=== PATIENT | male | born 1940 | race Caucasian/White ===

== ENCOUNTER 2017-04-13 21:48 | Inpatient (IN) | payer OTHER ==
--- NOTE | ~2017-04-13 | HP ---
History And Physical [place] [address] [place]. [address] NAME: ARMANDO GARRETT : 42 STATUS : ADM Kvng PAT#: [id number] AGE: 76 ADM/REG DATE : 04/13/17 MR#: [id number] REPORT SERV DATE: 04/14/17 DICTATED BY: DATE: REPORT STATUS : Draft TRANSCRIBED BY: MODL DATE: 04/13/17 DATE OF ADMISSION: 04/13/2017 CHIEF COMPLAINT: Bright red blood per rectum, abdominal pain. HISTORY OF PRESENT ILLNESS: Mr. Garrett is a 76-year-old white male, who was in his usual state of health until Sunday of this week, when he had four bowel movements. He states the initial one started out as constipation. He has been taking increasing amounts of Percocet recently due to joint pain and back pain with outpatient evaluation pending. Following the constipated bowel movement, he had two more large volume bowel movements with no blood. By the time, he had a fourth bowel movement on Sunday, he described "filling the commode with clots." He had regular bowel movements on Sunday and Sunday, but then on , developed some recurrence of frequent bowel movements, with the last bowel movement being quite malodorous, bulky, and with blood in the commode and on wiping. The patient reports a past history of colon polyps and last colonoscopy was performed in the [place] [facility] in 2009. He has not been having any recent GI issues aside from the constipation that started on Sunday. He denies any unusual food or fluid ingestions, has not been drinking well water, has not been drinking from a stream, has not eaten any unusual foods nor had any sick contacts. He has not taken any recent antibiotics. He saw his primary care provider at the [place] - Jean Carlos Esposito today, and was referred to the hospital for further evaluation because of recurrence of the GI bleeding with associated symptoms of weakness and fatigue. The patient also endorses bilateral lower quadrant and midline tenderness to palpation. He denies any fevers or chills. He has not had any nausea or vomiting. His oral intake has been unaffected by his GI symptoms. On further questioning, his weakness and fatigue has been present since at least December of this year, at which point, he was evaluated for multiple causes of chronic fatigue, resulting in a cardiac stent being placed at [facility] on 12/26. The patient denies taking any blood thinning medications. In the emergency department, he was found to be mildly orthostatic with a 20-point systolic blood pressure decreased on standing, and is tachycardic with heart rates between 100 and 109. He continues to endorse abdominal pain and weakness. His hemoglobin is 12.5. His coagulation studies are normal. His blood pressure is elevated, and he has had a CT abdomen and pelvis without contrast demonstrating no acute abnormalities. REVIEW OF SYSTEMS: Full 14-point review of systems is negative except as dictated in the history of present illness. History And Physical [address] [place]. [address] NAME: ARMANDO GARRETT : 42 STATUS : ADM Kvng PAT#: [id number] AGE: 76 ADM/REG DATE : 04/13/17 MR#: [id number] REPORT SERV DATE: 04/14/17 DICTATED BY: DATE: REPORT STATUS : Draft TRANSCRIBED BY: MODArturo DATE: 04/13/17 PAST MEDICAL HISTORY: Extensive and includes: 1. Spinal stenosis. 2. Pulmonary nodule. 3. Obesity. 4. Colonic polyps. 5. Erectile dysfunction. 6. Glucose intolerance. 7. Cataract. 8. Allergic rhinitis. 9. History of central retinal vein occlusion. 10.Glaucoma. 11.Degenerative joint disease. 12.COPD - with past history of heavy tobacco use. 13.Benign prostatic hypertrophy. 14.Rheumatoid arthritis. 15.Osteoarthritis. 16.Hypertension. 17.History of anemia. 18.History of gastroesophageal reflux disease. PAST SURGICAL HISTORY: Includes: 1. Coronary artery stent on 12/26/2016. 2. Tonsillectomy. 3. Cholecystectomy. 4. Spinal fusion x2. 5. Left foot fusion. 6. Right shoulder surgery. ALLERGIES: NONE. MEDICATIONS: 1. Percocet 5/325 mg one tablet p.o. four times a day. 2. Calcium plus vitamin D two tablets p.o. daily. 3. Meloxicam 15 mg p.o. daily. 4. Prednisone 5 mg p.o. twice a day. 5. Etanercept 50 mg injected weekly. 6. Omeprazole 20 mg p.o. daily. 7. Dorzolamide eyedrops one drop in each eye twice a day. 8. Latanoprost eye drops one drop in each eye at bedtime. 9. Valsartan 325 mg p.o. daily. 10.Leflunomide 20 mg p.o. daily. 11.Simvastatin 40 mg p.o. at bedtime. 12.Cetirizine 10 mg p.o. daily. 13.Gabapentin 600 mg p.o. three times a day. 14.Brimonidine one drop in both eyes twice a day. 15.Hydrochlorothiazide 12.5 mg p.o. daily. 16.Artificial tears one drop in both eyes four times a day. History And Physical [address] [address] NAME: ARMANDO GARRETT : 42 STATUS : ADM Kvng PAT#: [id number] AGE: 76 ADM/REG DATE : 04/13/17 MR#: [id number] REPORT SERV DATE: 04/14/17 DICTATED BY: DATE: REPORT STATUS : Draft TRANSCRIBED BY: MODL DATE: 04/13/17 17.Advair 115/21 mcg one puff inhaled twice a day. 18.Tamsulosin 0.4 mg p.o. daily. 19.Topical nystatin q.6 hours as needed for rash. 20.Duloxetine 30 mg p.o. daily. SOCIAL HISTORY: The patient is . He is a retired marine. He smokes one pack a day for 40-50 years, but quit smoking 10 years ago and now uses dip tobacco instead. He denies any present alcohol use, but used to drink one beer a day several years ago. He drinks caffeine occasionally. No routine exercise. FAMILY HISTORY: The patient's mother had lung cancer. He has other family members with COPD. His father of myocardial infarction at the age of 74. His brother of myocardial infarction in his 70s. His mother also had a stroke at age 65. Primary care provider is Jean Carlos Esposito at the [place] and airborne electronics analyst is Dr. Luis Mcmullen. PHYSICAL EXAMINATION: VITAL SIGNS: Blood pressure 198/88 lying, 170/80 standing, temperature 97.1, pulse 100, respirations 18, oxygen saturations 95% on room air. GENERAL: This is an obese white male, in no acute distress. Alert and oriented in three dimensions. He is pleasant and conversant, although complaining of pain and pass view for Percocet. HEENT: Normocephalic, atraumatic. Pupils are equally round and reactive to light. No scleral icterus. No sinus tenderness to palpation or nasal drainage. Oropharynx moist and pink with no posterior pharyngeal erythema nor exudate. NECK: Supple. No jugular venous distention. No lymphadenopathy. No bruits. CARDIOVASCULAR: Regular rate and rhythm. No murmurs, rubs or gallops. LUNGS: Clear to auscultation bilaterally. No wheezes, crackles, nor rhonchi. ABDOMEN: Abdomen is soft, distended. Diffusely tender to palpation vertically along the midline, and in bilateral lower quadrants. Decreased bowel sounds x4. No obvious ascites and no clear hepatosplenomegaly, although habitus limits examination. EXTREMITIES: No cyanosis, clubbing, or edema. Evidence of prior fusion of the left ankle. SKIN: Normal skin turgor, question psoriasis on his back, with a faint scaly rash covering the majority of bilateral lower quadrants. NEUROLOGIC: Cranial nerves 2 through 12 were tested and are intact. Deep tendon reflex 2+ bilateral brachioradialis and patellar tendons. Sensation intact to fine touch and temperature in all four limbs. Strength is 5/5 bilateral upper and lower extremities. RECTAL: No stool in the vault. No evidence of blood presently. LABS: Labs from the [place] on 03/21/2017 and 03/27/2017 were reviewed as well as labs from the emergency department. Here, sodium is 144, potassium 4.4, chloride 109, bicarb 28, BUN 28, creatinine 1.1, glucose 147, calcium 9.5, total protein 7.1, albumin 3.3, and liver enzymes are normal. White blood cell count 6.3, hemoglobin 12.5, hematocrit 38.7, platelets 278. INR 1.0. Outside labs reveal hemoglobin on 03/21/2017 to be 11.6. Sedimentation rate 34, rheumatoid History And Physical [address] [place]. [address] NAME: ARMANDO GARRETT : 41 STATUS : ADM Kvng PAT#: [id number] AGE: 76 ADM/REG DATE : 04/13/17 MR#: [id number] REPORT SERV DATE: 04/14/17 DICTATED BY: DATE: REPORT STATUS : Draft TRANSCRIBED BY: MODL DATE: 04/13/17 factor 61. C-reactive protein 6. Liver enzymes and kidney function were normal at that point with a BUN of 24. MANSOOR is negative. Urine drug screen negative. A 24-hour urine for metanephrines negative. IMAGIN. A recent outpatient CT chest was done for re-evaluation of a 4 mm left major fissure nodule. It is stable. Incidentally noted on that image is also a left renal artery stent. No evidence of thoracic aortic aneurysm. Fat containing hiatal hernia. 2. CT abdomen and pelvis without contrast here shows 1-2 mm nonobstructing intrarenal calculi bilaterally, 2.7 cm exophytic simple cyst in the upper pole cortex of the left kidney, with left renal artery vascular stent in place. Mild diverticulosis throughout the colon, but no diverticulitis, colitis, or proctitis. Small fat containing umbilical hernia and mild atherosclerotic calcification of the abdominal aorta but no aneurysm. Multilevel severe degenerative disk disease throughout the lower thoracic and lumbar spine. No inguinal hernia. No bladder calculus. Normal prostate and seminal vesicles. 3. An EKG shows normal sinus rhythm with no evidence of ischemic change. IMPRESSION: 1. Bright red blood per rectum - intermittent over the course of the past week. 2. Mild anemia. 3. Bilateral lower quadrant and midline abdominal pain of unclear etiology. 4. Hypertension - with orthostasis. 5. Weakness and fatigue - etiology unclear. 6. Rheumatoid arthritis on disease modifying agents and chronic steroid therapy. 7. Narcotic dependent degenerative disk disease and degenerative joint disease. 8. Pulmonary nodule - stable in the left middle lobe. 9. Recent stent - cardiac per history provided by patient, but suspect it was actually a left renal artery stent based on imaging. 10.Additional medical history as outlined. PLAN: 1. Observation admission to a cardiac telemetry bed, attending Dr. Riley Mckeon. 2. IV fluids, with serial H and H measurements and transfusion if indicated. It is not presently indicated. 3. Stool studies if the patient produces recurrent loose bowel movements. Stool will be sent for fecal white blood cells, ova and parasite, stool Gram stain and culture, C. diff PCR. 4. Mesenteric Doppler ultrasound to evaluate for mesenteric stenosis given cardiovascular risk factors and unexplained abdominal symptoms. 5. Non-pharmacologic DVT prophylaxis. 6. GI consultation - Dr. Cody Majano for this unattached patient. ED/BINDU History And Physical [address] [place]. [address] NAME: ARMANDO GARRETT : 41 STATUS : ADM Kvng PAT#: [id number] AGE: 76 ADM/REG DATE : 04/13/17 MR#: [id number] REPORT SERV DATE: 04/14/17 DICTATED BY: DATE: REPORT STATUS : Draft TRANSCRIBED BY: MODL DATE: 04/13/17 Riley Mckeon M.D. / [id number] CC: Jalen Fitzpatrick MD
--- NOTE | ~2017-04-13 | EGD ---
EGD REPORT [facility] [address] [place] [address] NAME: RAMIRO GARRETT : 42 STATUS : ADM Kvng PAT#: [id number] AGE: 76 ADM/REG DATE : 04/13/17 MR#: [id number] REPORT SERV DATE: 04/15/17 DICTATED BY: JOSE CABRERA DATE: 04/15/17 REPORT STATUS : Draft [facility] BY: [facility] DATE: 04/15/17 Endoscopy Center Patient Name: Ramiro Garrett Date of : 1940 Attending MD: JOSE CABRERA MD Procedure Date No Time: 04/15/2017 Procedure: Colonoscopy Indications: Hematochezia; h/o colon polyps; last exam 2009. Patient Profile: Informed consent was obtained from the patient by me prior to the procedure. Risks, benefits, and alternatives were discussed including the risk of bleeding, perforation, infection, reaction to medicine, missed lesion, and cardiopulmonary complications. Referring MD: KIRBY YBARRA Medicines: Monitored Anesthesia Care Complications: No immediate complications. Procedure: Pre-Anesthesia Assessment: - ASA Grade Assessment: III - A patient with severe systemic disease. After I obtained informed consent, the scope was passed under direct vision. Throughout the procedure, the patient's blood pressure, pulse, and oxygen saturations were monitored continuously. The CF [id number] was introduced through the anus and advanced to the cecum, identified by appendiceal orifice and ileocecal valve. The colonoscope was slowly withdrawn with careful examination all mucosal surfaces including specific attention around flexures and tip deflection behind folds; retroflexion performed in rectum. The colonoscopy was performed without difficulty. The patient tolerated the procedure well. The quality of the bowel preparation was adequate. The ileocecal valve, appendiceal orifice and rectum were photographed. CO2 utilized. Findings: A localized area of mildly thickened folds of the mucosa was found in the sigmoid colon and at 18 cm proximal to the anus ?inverted diverticulum vs polyp. Biopsies were taken with a cold forceps for histology. Two flat polyps were found in the rectum. The polyps were 5 mm in size. These polyps were removed with a cold biopsy forceps. Resection and retrieval were complete. Internal hemorrhoids were found, and they were moderate. Impression: - Thickened folds of the mucosa in the sigmoid colon and EGD REPORT [address] [place]. [address] NAME: RAMIRO GARRETT : 42 STATUS : ADM Kvng PAT#: [id number] AGE: 76 ADM/REG DATE : 04/13/17 MR#: [id number] REPORT SERV DATE: 04/15/17 DICTATED BY: JOSE CABRERA DATE: 04/15/17 REPORT STATUS : Draft TRANSCRIBED BY: [facility] DATE: 04/15/17 at 18 cm proximal to the anus. Biopsied. - Two 5 mm polyps in the rectum. Resected and retrieved. - Internal hemorrhoids. Recommendation: - Await pathology results. - Hemorrhoids very likely source of bleeding--Anusol HC cream 10 days then prn. - D/c home OK gi standpoint. Procedure Code(s): --- Professional --- 29484, Colonoscopy, flexible, proximal to splenic flexure; with biopsy, single or multiple Diagnosis Code(s): --- Professional --- K63.89, Other specified diseases of intestine K62.1, Rectal polyp K64.8, Other hemorrhoids K92.1, Melena CPT copyright 2013 [employer]. All rights reserved. The codes documented in this report are preliminary and upon children's service supervisor review may be revised to meet current compliance requirements. JOSE CABRERA MD 04/15/2017 9:27 AM This report has been signed electronically. Number of Addenda: 1 Note Initiated On: 04/15/2017 8:54 AM Scope Withdrawal Time 0 hours 13 minutes 48 seconds Addendum Number: 1 Addendum Date: 04/15/2017 9:28 AM SC diverticulosis JOSE CABRERA MD 04/15/2017 9:28 AM This report has been signed electronically. EGD REPORT [facility] [address] [place] [address] NAME: RAMIRO GARRETT : 42 STATUS : ADM Kvng PAT#: [id number] AGE: 76 ADM/REG DATE : 04/13/17 MR#: [id number] REPORT SERV DATE: 04/15/17 DICTATED BY: JOSE CABRERA. DATE: 04/15/17 REPORT STATUS : Draft TRANSCRIBED BY: [facility] DATE: 04/15/17 [facility] [place] [address]
--- NOTE | ~2017-04-13 | CN ---
Consultation Report [facility] [address] [place]. [address] NAME: ARMANDO YOO : 42 STATUS : ADM Kvng PAT#: [id number] AGE: 76 ADM/REG DATE : 04/13/17 MR#: [id number] REPORT SERV DATE: 04/14/17 DICTATED BY: CODY MAJANO DATE: 04/14/17 REPORT STATUS : Draft TRANSCRIBED BY: MODL DATE: 04/14/17 GI CONSULT DATE OF CONSULTATION: 04/14/2017 Bright red blood per rectum. HISTORY OF PRESENT ILLNESS: This is a 76-year-old man, who presented to the emergency room with two episodes of mild volume hematochezia with clots, but also with brown stool and no melena. He has had no further hematochezia since admission. No abdominal pain. No diarrhea or constipation. No GERD or dysphagia. Last colonoscopy 2009. Polyps were removed at the [place]. MEDICAL HISTORY: Spinal stenosis, pulmonary nodule, obesity, colon polyps, erectile dysfunction, cataract, allergic rhinitis, central retinal vein occlusion, glaucoma, degenerative joint disease, COPD, BPH, rheumatoid arthritis, osteoarthritis, hypertension, GERD, coronary artery stent, tonsillectomy, cholecystectomy, spinal fusion x2, left foot fusion, right shoulder surgery. ALLERGIES: GABAPENTIN. MEDICATIONS: Brimonidine, calcium, Zyrtec, Cosopt, Advair, Xalatan, leflunomide, Mobic, Prilosec, Percocet, prednisone, Zocor, Enbrel, Diovan. FAMILY HISTORY: Negative for GI malignancy. SOCIAL HISTORY: Does not use alcohol or tobacco significantly. REVIEW OF SYSTEMS: A complete review of systems was obtained and negative except that noted in the history of present illness. PHYSICAL EXAMINATION: VITAL SIGNS: He is currently afebrile. Temperature 97.6, pulse 70, respirations 18, blood pressure 104/59. HEENT: Sclerae anicteric. Pharynx is pink without exudate. NECK: Supple without lymphadenopathy. LUNGS: Clear to auscultation bilaterally. HEART: Regular rate and rhythm. S1, S2 heard without rubs or gallops. ABDOMEN: Normal bowel sounds. Belly is soft, nontender, nondistended without hepatosplenomegaly. EXTREMITIES: No pedal edema or rash. NEUROLOGIC: Alert and oriented without focal deficit. MUSCULOSKELETAL: Nontender. Consultation Report [facility] [address] [place] [address] NAME: ARMANDO YOO : 42 STATUS : ADM Kvng PAT#: [id number] AGE: 76 ADM/REG DATE : 04/13/17 MR#: [id number] REPORT SERV DATE: 04/14/17 DICTATED BY: CODY MAJANO DATE: 04/14/17 REPORT STATUS : Draft TRANSCRIBED BY: MODL DATE: 04/14/17 DATA: White blood cell count 5.6, hematocrit 38.0 and stable, MCV 98.9, platelets 277. INR 1.0. BUN is 28, creatinine is 0.99. Liver tests are normal. TSH low. Hemoglobin A1c 7.3. A.m. cortisol normal. B12 normal. Serum iron normal. IMPRESSION: 1. Hematochezia in the setting of a history of colon polyps. 2. Chronic obstructive pulmonary disease. 3. Rheumatoid arthritis. RECOMMENDATIONS: 1. Monitor hematocrit, transfuse as necessary. 2. GoLYTELY preparation for colonoscopy to follow. CC/BINDU Cody Majano M.D. / [id number] CC: Jalen Lozada MD
--- NOTE | ~2017-04-13 | EGD ---
EGD REPORT [facility] [address] [place] [address] NAME: RAMIRO GARRETT : 42 STATUS : ADM Kvng PAT#: [id number] AGE: 76 ADM/REG DATE : 04/13/17 MR#: [id number] REPORT SERV DATE: 04/15/17 DICTATED BY: JOSE CABRERA DATE: 04/15/17 REPORT STATUS : Draft TRANSCRIBED BY: [facility] DATE: 04/15/17 Endoscopy Center Patient Name: Ramiro Garrett Date of : 1940 Attending MD: JOSE CABRERA MD Procedure Date No Time: 04/15/2017 Procedure: Colonoscopy Indications: Hematochezia; h/o colon polyps; last exam 2009. Patient Profile: Informed consent was obtained from the patient by me prior to the procedure. Risks, benefits, and alternatives were discussed including the risk of bleeding, perforation, infection, reaction to medicine, missed lesion, and cardiopulmonary complications. Referring MD: KIRBY YBARRA Medicines: Monitored Anesthesia Care Complications: No immediate complications. Procedure: Pre-Anesthesia Assessment: - ASA Grade Assessment: III - A patient with severe systemic disease. After I obtained informed consent, the scope was passed under direct vision. Throughout the procedure, the patient's blood pressure, pulse, and oxygen saturations were monitored continuously. The CF [id number] was introduced through the anus and advanced to the cecum, identified by appendiceal orifice and ileocecal valve. The colonoscope was slowly withdrawn with careful examination all mucosal surfaces including specific attention around flexures and tip deflection behind folds; retroflexion performed in rectum. The colonoscopy was performed without difficulty. The patient tolerated the procedure well. The quality of the bowel preparation was adequate. The ileocecal valve, appendiceal orifice and rectum were photographed. CO2 utilized. Findings: A localized area of mildly thickened folds of the mucosa was found in the sigmoid colon and at 18 cm proximal to the anus ?inverted diverticulum vs polyp. Biopsies were taken with a cold forceps for histology. Two flat polyps were found in the rectum. The polyps were 5 mm in size. These polyps were removed with a cold biopsy forceps. Resection and retrieval were complete. Internal hemorrhoids were found, and they were moderate. Impression: - Thickened folds of the mucosa in the sigmoid colon and EGD REPORT [address] [place]. [address] NAME: RAMIRO GARRETT : 42 STATUS : ADM Kvng PAT#: [id number] AGE: 76 ADM/REG DATE : 04/13/17 MR#: [id number] REPORT SERV DATE: 04/15/17 DICTATED BY: JOSE CABRERA DATE: 04/15/17 REPORT STATUS : Draft TRANSCRIBED BY: [facility] DATE: 04/15/17 at 18 cm proximal to the anus. Biopsied. - Two 5 mm polyps in the rectum. Resected and retrieved. - Internal hemorrhoids. Recommendation: - Await pathology results. - Hemorrhoids very likely source of bleeding--Anusol HC cream 10 days then prn. - D/c home OK gi standpoint. Procedure Code(s): --- Professional --- 60264, Colonoscopy, flexible, proximal to splenic flexure; with biopsy, single or multiple Diagnosis Code(s): --- Professional --- K63.89, Other specified diseases of intestine K62.1, Rectal polyp K64.8, Other hemorrhoids K92.1, Melena CPT copyright 2013 [employer]. All rights reserved. The codes documented in this report are preliminary and upon mat making machine tender review may be revised to meet current compliance requirements. JOSE CABRERA MD 04/15/2017 9:27 AM This report has been signed electronically. Number of Addenda: 0 Note Initiated On: 04/15/2017 8:54 AM Scope Withdrawal Time 0 hours 13 minutes 48 seconds
--- NOTE | ~2017-04-13 | DS ---
Discharge Summary [facility] [address] [place]. [address] NAME: ARMANDO YOO : 42 STATUS : DIS IN PAT#: [id number] AGE: 76 ADM/REG DATE : 04/13/17 MR#: [id number] REPORT SERV DATE: 04/16/17 DICTATED BY: VENUS VALENZUELA DATE: 04/15/17 REPORT STATUS : Draft TRANSCRIBED BY: MODL DATE: 04/15/17 ADMISSION DATE: 04/13/2017 DISCHARGE DATE: 04/15/2017 ASSOCIATE ARTISTIC DIRECTOR: Coyd Majano M.D., GI. DISCHARGE DIAGNOSES: 1. Acute bright red blood per rectum. 2. Acute blood loss anemia. 3. Chronic obstructive pulmonary disease. 4. Rheumatoid arthritis, chronic pain. 5. Glaucoma and history of central retinal artery occlusion. 6. Opiate-induced constipation. 7. Glaucoma with previous central retinal artery occlusion. 8. Obesity with body mass index of 31.3. 9. Erectile dysfunction with diabetes mellitus type 2 with current A1c of 7.3%. 10.Hypertension. 11.History of pulmonary nodule, 6 x 10 mm, right upper lobe on 10/15/2015 CT of chest. 12.Benign prostatic hypertrophy. 13.Peripheral arterial disease with history of previous left renal artery stent. HISTORY: This patient is followed by Dr. Esposito at the [facility] as well as Rheumatology at the [facility]. He presents to the emergency room at [facility]. He normally has significant constipation, but recently had a few more bowel movements. Reportedly, he to increase the amount of Percocet he was taking because of his arthritic pain. He then started to notice bright red blood per rectum multiple times and came to our emergency room because of this. He had some vague abdominal discomfort. He was referred to our team for inpatient care. CT scan of the abdomen and pelvis revealed no acute abnormalities. There was very tiny 1 to 2 mm vascular calcifications versus nonobstructing bilateral intrarenal calculi; small cyst, upper pole left kidney; left renal artery vascular stent in place. No inflammatory changes noted in the bowel. Mesenteric Doppler unfortunately was limited by overlying bowel gas. The superior mesenteric artery was well visualized and was normal. The inferior mesenteric, splenic, hepatic, and celiac could not be visualized because of overlying bowel gas. But the patient had no significant abdominal pain, so this was not felt to be ischemic cause for his bleeding. He was seen by Dr. Cody Majano of GI. He gave the patient GoLYTELY and then did a colonoscopy on 04/15/2017. He found several small colon polyps, these were removed. There was a local area in the sigmoid colon, 18 cm proximal to the anus that was thought to be a possible inverted diverticulum, biopsies were taken. There were internal hemorrhoids, that were moderate in size, and Dr. Majano felt that was the source for the bleeding. He gave him Anusol HC for this and to follow up as an outpatient. I talked with the patient and his at length about his chronic constipation that is likely opiate induced. In the past, he has tried MiraLAX, stool softeners, milk of magnesia, Dulcolax without improvement. We are going to try lactulose. If that fails, his Discharge Summary [address] [place]. [address] NAME: ARMANDO YOO : 42 STATUS : DIS IN PAT#: [id number] AGE: 76 ADM/REG DATE : 04/13/17 MR#: [id number] REPORT SERV DATE: 04/16/17 DICTATED BY: VENUS VALENZUELA DATE: 04/15/17 REPORT STATUS : Draft TRANSCRIBED BY: BINDU DATE: 04/15/17 PCP can consider other options such as Movantik or Linzess. The patient was noted to have a mild acute blood loss anemia. His hemoglobin on presentation was 12.5, at its lowest 11.3. He does have a history of a mild chronic anemia, which certainly is not surprising given his significant rheumatoid arthritis. I talked with the patient about his tobacco use. He no longer smokes, but he does dip. I advised him that this still increases his risk of cancer of the mouth and of the gastrointestinal tract. The patient's A1c was checked here because of a history of glucose problems. His A1c was 7.3% consistent with type 2 diabetes mellitus. His sugars here ranged between 97 and 147. DISCHARGE MEDICATIONS: Brimonidine 0.2% one drop both eyes b.i.d.; Cosopt ophthalmic one drop both eyes b.i.d.; Xalatan 0.005 one drop both eyes at bedtime; Prilosec 20 mg daily, which is chronic for him; Zocor 40 mg daily; Diovan 320 mg every morning (creatinine 0.84 and potassium 3.9); prednisone, he takes 5 mg in the morning, 3 mg at bedtime, and he occasionally takes a 10 mg p.r.n. acute flare with his arthritis; Tylenol 650 q.6 hours p.r.n. mild pain; Percocet 5/325 q.i.d. p.r.n. pain, which is a chronic medicine for him; Zyrtec 5 mg daily p.r.n. allergies; Os-Benjamin with vitamin D 500 mg b.i.d.; Enbrel 50 mg subcu every Sunday and I advised him to discontinue the Mobic because at his age, it increases his risk of upper GI bleeds as well as renal dysfunction and cardiac dysfunction; Arava 20 mg daily; Advair HFA 115/21, a puff q.12 hours; Anusol HC suppository one per rectum b.i.d.; and lactulose one to four tablespoons daily, titrated to constipation. FOLLOWUP: He should follow up with his [place] physician, Dr. Jean Carlos Esposito, within the next week or two; with GI, Dr. Majano in the next month; as well as with his Vascular, Dr. Reyna; and his ccu nurse, Dr. Terrell Vasquez at the [facility]. I spent 42 minutes today with the patient and with his and with discharge planning. DICTATED BY: Venus Valenzuela M.D. RSG/MODL Venus Valenzuela M.D. / [id number] CC: Jalen Lozada MD Chad Charapata, M.D. Discharge Summary [address] [address] NAME: ARMANDO YOO : 42 STATUS : DIS IN PAT#: [id number] AGE: 76 ADM/REG DATE : 04/13/17 MR#: [id number] REPORT SERV DATE: 04/16/17 DICTATED BY: VENUS VALENZUELA DATE: 04/15/17 REPORT STATUS : Draft TRANSCRIBED BY: BINDU DATE: 04/15/17 Sahil Reyna M.D. Nidia Torres Red
[2017-04-13 20:03] LABS: BASOPHILS 0.2 %; BASOPHILS ABSOLUTE 0.01 10/3/uL (0.0-0.16); EOSINOPHILS 1.9 %; EOSINOPHILS ABSOLUTE 0.12 10/3/uL (0.0-0.53); HEMOGLOBIN 12.5 g/dL (13.6-17.8); IMMATURE GRANULOCYTES 0.2 %; IMMATURE GRANULOCYTES ABSOLUTE 0.01 10/3/uL (0.0-0.11); LYMPHOCYTES ABSOLUTE 1.45 10/3/uL (0.67-4.30); MEAN CORPUS HGB CONC 32.3 g/dL (32.0-36.0); MEAN CORPUSCULAR HEMOGLOB 31.6 pg (26.0-34.0); MEAN PLATELET VOLUME 9.5 fL (9.2-13.0); MONOCYTES 11.9 %; MONOCYTES ABSOLUTE 0.75 10/3/uL (0.21-1.20); NEUTROPHILS 62.8 %; NEUTROPHILS ABSOLUTE 3.97 10/3/uL (2.02-8.40); PLATELET COUNT 278 10/3/uL (150-400); RBC DISTRIBUTION WIDTH 13.7 % (12.0-16.0); RED CELL COUNT 3.95 10/6/uL (4.7-6.1); WHITE BLOOD CELLS 6.3 10/3/uL (4.5-10.5)
[2017-04-13 20:04] LABS: HEMATOCRIT 38.7 % (40.0-51.0); MANUAL DIFF NO %
[2017-04-13 20:18] LABS: PARTIAL THROMBO TIME 23.1 SEC (22.5-37.2); PROTIME (NOT ORD) 12.8 SEC (12.0-14.5)
[2017-04-13 20:19] LABS: A/G RATIO 0.9 (0.7-1.9); ALBUMIN 3.3 G/DL (3.5-5.0); ALKALINE PHOSPHATASE 65 U/L (45-117); CHLORIDE, SERUM 109 MMOL/L (96-112); CO2 (CARBON DIOXIDE) 28 MMOL/L (24-34); GFR AFRICAN AMERICAN 76 ML/MIN (>=60); GFR NON AFRICAN AMERICAN 65 ML/MIN (>=60); GLOBULIN 3.8 G/DL (2.5-4.1); POTASSIUM, SERUM 4.4 MMOL/L (3.5-5.3); SGOT(AST) 26 U/L (5-40); SGPT(ALT) 30 U/L (5-65); TOTAL BILIRUBIN 0.7 MG/DL (0-1.2); TOTAL PROTEIN 7.1 G/DL (6.0-8.5)
[2017-04-13 20:20] LABS: BUN (BLOOD UREA NITROGEN) 28 MG/DL (6-23); CALCIUM, SERUM 9.5 MG/DL (8.5-10.4); GLUCOSE, SERUM 147 MG/DL (60-99); SODIUM, SERUM 144 MMOL/L (135-148)
[~2017-04-13 21:48] MED LIST: ALEVE220 MG PO; ASAB PO; CALTRA600D PO; CAT1 PO; CETIRIZINE HCL5 MG PO; COREG6 PO; DORZOLAMIDE2 % OPH; ENBREL50 MG/M1 SC; FLOMAX4 PO; IBU800 PO; P1 PO; P5 PO; PCET PO; PRAVACHOL40 MG PO; PRILO PO; PULMICORT90 MCG INH; TIMOLOL MAL0.5 % OPH; XALAT OPH; ZESTRIL40 MG PO
[2017-04-13] MEDS ORDERED: P1 PO (23:33)
[2017-04-13] MEDS ORDERED: OS500+D PO (23:33)
[2017-04-13] MEDS ORDERED: PCET PO (23:33)
[2017-04-13] MEDS ORDERED: MOBIC7.5 PO (23:33)
[2017-04-13] MEDS ORDERED: P5 PO (23:36)
[2017-04-13] MEDS ORDERED: P10 PO (23:36)
[2017-04-13] MEDS ORDERED: ENBREL 50 MG SC (23:37)
[2017-04-13] MEDS ORDERED: PRILO PO (23:38)
[2017-04-13] MEDS ORDERED: COSOPT OPH (23:39)
[2017-04-13] MEDS ORDERED: XALAT OPH (23:39)
[2017-04-13] MEDS ORDERED: DIOVAN320 MG PO (23:40)
[2017-04-13] MEDS ORDERED: ARAVA20 PO (23:40)
[2017-04-13] MEDS ORDERED: CETIRIZINE HCL5 MG PO (23:41)
[2017-04-13] MEDS ORDERED: ZOCOR40 PO (23:41)
[2017-04-13] MEDS ORDERED: BRIMONIDINE0.2 % OPH (23:43)
[2017-04-13] MEDS ORDERED: ADVAIR115P INH (23:45)
[2017-04-14 04:47] LABS: BASOPHILS 0.2 %; BASOPHILS ABSOLUTE 0.01 10/3/uL (0.0-0.16); EOSINOPHILS 3.7 %; EOSINOPHILS ABSOLUTE 0.21 10/3/uL (0.0-0.53); HEMATOCRIT 37.4 % (40.0-51.0); HEMOGLOBIN 11.9 g/dL (13.6-17.8); IMMATURE GRANULOCYTES 0.4 %; IMMATURE GRANULOCYTES ABSOLUTE 0.02 10/3/uL (0.0-0.11); LYMPHOCYTES ABSOLUTE 1.63 10/3/uL (0.67-4.30); MEAN CORPUS HGB CONC 31.8 g/dL (32.0-36.0); MEAN CORPUSCULAR HEMOGLOB 31.5 pg (26.0-34.0); MEAN CORPUSCULAR VOLUME 98.9 fL (80-100); MONOCYTES 12.5 %; NEUTROPHILS 54.2 %; NEUTROPHILS ABSOLUTE 3.05 10/3/uL (2.02-8.40); PLATELET COUNT 277 10/3/uL (150-400); RBC DISTRIBUTION WIDTH 13.8 % (12.0-16.0); RED CELL COUNT 3.78 10/6/uL (4.7-6.1); WHITE BLOOD CELLS 5.6 10/3/uL (4.5-10.5)
[2017-04-14 04:52] LABS: MANUAL DIFF NO %
[2017-04-14 05:24] LABS: BUN (BLOOD UREA NITROGEN) 28 MG/DL (6-23); CALCIUM, SERUM 9.2 MG/DL (8.5-10.4); CHLORIDE, SERUM 107 MMOL/L (96-112); CREATININE 0.99 MG/DL (0.70-1.30); GFR AFRICAN AMERICAN 86 ML/MIN (>=60); GFR NON AFRICAN AMERICAN 74 ML/MIN (>=60); IRON, SERUM 58 MCG/DL (35-150); POTASSIUM, SERUM 3.8 MMOL/L (3.5-5.3); SODIUM, SERUM 144 MMOL/L (135-148); ULTRASENSITIVE TSH 0.216 MCIU/ML (0.358-3.740)
[2017-04-14 05:25] LABS: CO2 (CARBON DIOXIDE) 33 MMOL/L (24-34)
[2017-04-14 05:26] LABS: GLUCOSE, SERUM 109 MG/DL (60-99)
[2017-04-14 07:54] LABS: ASCORBIC ACID (UR NOT ORDER) NEG (NEG); BILIRUBIN, URINE NEGATIVE (NEG); KETONE, URINE NEGATIVE (NEG); LEUKOCYTE ESTERASE(NOT OR NEG (NEG); WBC (NOT ORDERED) (RFLEX) 1 (0-5)
[2017-04-14 08:44] LABS: HEMOGLOBIN 12.1 g/dL (13.6-17.8)
[2017-04-14 16:10] LABS: HEMOGLOBIN 12.3 g/dL (13.6-17.8)
[2017-04-14 20:14] LABS: HEMATOCRIT 38.9 % (40.0-51.0); HEMOGLOBIN 12.4 g/dL (13.6-17.8)
[2017-04-15 06:40] LABS: BASOPHILS 0.2 %; BASOPHILS ABSOLUTE 0.01 10/3/uL (0.0-0.16); EOSINOPHILS 2.8 %; EOSINOPHILS ABSOLUTE 0.17 10/3/uL (0.0-0.53); HEMATOCRIT 35.4 % (40.0-51.0); HEMOGLOBIN 11.3 g/dL (13.6-17.8); IMMATURE GRANULOCYTES 0.3 %; IMMATURE GRANULOCYTES ABSOLUTE 0.02 10/3/uL (0.0-0.11); LYMPHOCYTES 30.8 %; LYMPHOCYTES ABSOLUTE 1.88 10/3/uL (0.67-4.30); MEAN CORPUS HGB CONC 31.9 g/dL (32.0-36.0); MEAN CORPUSCULAR HEMOGLOB 31.2 pg (26.0-34.0); MEAN CORPUSCULAR VOLUME 97.8 fL (80-100); MONOCYTES 10.7 %; MONOCYTES ABSOLUTE 0.65 10/3/uL (0.21-1.20); NEUTROPHILS 55.2 %; NEUTROPHILS ABSOLUTE 3.37 10/3/uL (2.02-8.40); PLATELET COUNT 258 10/3/uL (150-400); RBC DISTRIBUTION WIDTH 13.6 % (12.0-16.0); RED CELL COUNT 3.62 10/6/uL (4.7-6.1); WHITE BLOOD CELLS 6.1 10/3/uL (4.5-10.5)
[2017-04-15 06:43] LABS: MANUAL DIFF NO %
[2017-04-15 06:51] LABS: CALCIUM, SERUM 9.4 MG/DL (8.5-10.4); CHLORIDE, SERUM 105 MMOL/L (96-112); CO2 (CARBON DIOXIDE) 29 MMOL/L (24-34); CREATININE 0.84 MG/DL (0.70-1.30); GFR AFRICAN AMERICAN 99 ML/MIN (>=60); GFR NON AFRICAN AMERICAN 86 ML/MIN (>=60); GLUCOSE, SERUM 97 MG/DL (60-99); POTASSIUM, SERUM 3.9 MMOL/L (3.5-5.3); SODIUM, SERUM 140 MMOL/L (135-148)
[2017-04-15 06:52] LABS: BUN (BLOOD UREA NITROGEN) 16 MG/DL (6-23)
[2017-04-15] MEDS ORDERED: T PO (14:56)
[2017-04-15] MEDS ORDERED: ANUSOL-HC25 MG PR (14:57)
[2017-04-15] MEDS ORDERED: ENULOSE PO (14:58)
[2017-04-15] MEDS ORDERED: CONSTULOSE PO (14:59)
== END 2017-04-15 16:12 | disposition home or self-care (01) | DRG 378 ==
LOC: ER 21:48 → 2SO 23:30
PROVIDERS: Emergency Medicine; Hospitalist; Internal Medicine
PROC: 0DBN8ZX Excision of Sigmoid Colon, Via Natural or Artificial Opening Endoscopic, Diagnostic (ICD-10-PCS; principal; 2017-04-13)
PROC: 0DBN8ZZ Excision of Sigmoid Colon, Via Natural or Artificial Opening Endoscopic (ICD-10-PCS; 2017-04-13)
DX: K62.5 Hemorrhage of anus and rectum (principal); D62 Acute posthemorrhagic anemia; J44.9 Chronic obstructive pulmonary disease, unspecified; E11.9 Type 2 diabetes mellitus without complications; M06.9 Rheumatoid arthritis, unspecified; H40.9 Unspecified glaucoma; K59.03 Drug induced constipation; T40.605A Adverse effect of unspecified narcotics, initial encounter; E66.9 Obesity, unspecified; I10 Essential (primary) hypertension; N40.0 Benign prostatic hyperplasia without lower urinary tract symptoms; I73.9 Peripheral vascular disease, unspecified; R91.1 Solitary pulmonary nodule; N20.0 Calculus of kidney; N28.1 Cyst of kidney, acquired; K63.89 Other specified diseases of intestine; K62.1 Rectal polyp; K57.30 Diverticulosis of large intestine without perforation or abscess without bleeding; K64.8 Other hemorrhoids; F17.210 Nicotine dependence, cigarettes, uncomplicated; K21.9 Gastro-esophageal reflux disease without esophagitis; I25.10 Atherosclerotic heart disease of native coronary artery without angina pectoris; J30.9 Allergic rhinitis, unspecified; Z68.31 Body mass index [BMI] 31.0-31.9, adult; Z95.5 Presence of coronary angioplasty implant and graft; Z98.890 Other specified postprocedural states
CPT/HCPCS: 36415; 74176; 80048; 80053; 81001; 82533; 82607; 83036; 83540; 83735; 84443; 85014; 85018; 85025; 85610; 85730; 86850; 86900; 86901; 88305; 93005; 93975; 94640; 99285; A9270-GY; J1170